=== PATIENT | female | born 1950 | race Caucasian/White ===

== ENCOUNTER 2018-06-29 18:52 | Emergency (ER) | payer MEDICARE, OTHER ==
[~2018-06-29] VITALS: Ht 162.6 cm; Wt 68.9 kg
[2018-06-29 20:16] VITALS: BP 140/91
[2018-06-29] MEDS ORDERED: THROMBIN 5,000 UNIT NASAL SPRAY BOTTLE. TP ONE (20:30)
[2018-06-29] MEDS ORDERED: DIPHTH,PERTUSS(ACELL),TET TOX 0.5 ML DISP.SYRIN. VAX IM ONE (20:45)
--- NOTE | 2018-06-29 21:32 | ED.ADGEN ---
Past History Past Medical History: High Cholesterol, Hypothyroid Past Surgical History: Hysterectomy Alcohol Use: None Drug Use: None Adult General Chief Complaint Chief Complaint Left index finger skin avulsion HPI HPI Patient is a 67-year-old female presents with left index skin avulsion from kitchen knife. Patient was cutting bread when she skinned the tip of her left index finger. Patient with gentle oozing with approximately 0.5 cm diameter full -thickness soft tissue defect. No exposed bone or nailbed involvement. Injury occurred just prior to ED arrival. Tetanus is out of date.[] Review of Systems Review of Systems Review symptoms as per history of present illness. All other review symptoms are negative. All other systems were reviewed and found to be within normal limits, except as documented in this note. Current Medications Current Medications Current Medications Medications (Trade) Dose Ordered Sig/Mitchel Start Time Stop Time Status Last Admin Dose Admin Diphtheria/ Tetanus/Acell Pertussis (Boostrix) 0.5 ml ONCE ONCE 06/29/18 20:45 06/29/18 20:46 DC 06/29/18 20:51 0.5 ML Thrombin (Thrombin-Jmi) 1 spray 1X ONCE 06/29/18 20:30 06/29/18 20:31 DC 06/29/18 20:30 1 SPRAY Allergies Allergies Allergies Coded Allergies Type Severity Reaction Last Updated Verified Penicillins Allergy Intermediate 06/29/18 Yes codeine Allergy Unknown 06/29/18 Yes Physical Exam Physical Exam Constitutional: Well developed, well nourished, no acute distress, non-toxic appearance. [] HENT: Normocephalic, atraumatic, bilateral external ears normal, oropharynx moist, no oral exudates, nose normal. [] Extremities: Left index finger, 0.4 cm full thickness skin defect over radial aspect of finger lateral nail bed. Gentle oozing. No exposed bone or nail bed injury.[] Neurologic: Alert and oriented X 3, normal motor function, normal sensory function, no focal deficits noted. [] Psychologic: Affect normal, judgement normal, mood normal. [] Current Patient Data Vital Signs Vital Signs Date Time Temp Pulse Resp B/P (MAP) Pulse Ox O2 Delivery O2 Flow Rate FiO2 06/29/18 20:16 98.0 70 18 96 Room Air EKG EKG [] Radiology/Procedures Radiology/Procedures [] Course & Med Decision Making Course & Med Decision Making Pertinent Labs and Imaging studies reviewed. (See chart for details) [Wound irrigated, ROM and applied to slow bleeding, wound bandaged and tetanus updated. Typical care instructions provided. Return precautions reviewed.] Final Impression Final Impression [1. Left index finger skin avulsion] Jenny Disclaimer Jenny Disclaimer This electronic medical record was generated, in whole or in part, using a voice recognition dictation system. ULISSES MEEHAN DO Jun 29, 2018 21:32
== END 2018-06-29 20:54 | disposition home or self-care (01) ==
LOC: ER 18:52
DX: S61.301A Unspecified open wound of left index finger with damage to nail, initial encounter (principal); E78.00 Pure hypercholesterolemia, unspecified; E03.9 Hypothyroidism, unspecified; Z88.0 Allergy status to penicillin; Z88.5 Allergy status to narcotic agent; W26.0XXA Contact with knife, initial encounter; Y93.89 Activity, other specified; Y92.89 Other specified places as the place of occurrence of the external cause; Y99.8 Other external cause status
CPT/HCPCS: 90471; 90715; 99283-25

== ENCOUNTER → 2019-07-31 | Outpatient (CLI) | payer MEDICARE, OTHER ==
--- NOTE | 2019-07-31 10:28 | RAD ---
EXAM: Right lower extremity venous Doppler sonogram. HISTORY: Pain. TECHNIQUE: Muñoz scale and color Doppler sonographic evaluation of the right lower extremity veins with spectral waveform analysis was performed. FINDINGS: There is normal color flow, normal compressibility and there are normal spectral waveforms in the common femoral, superficial femoral, popliteal, posterior tibial and greater saphenous veins. IMPRESSION: No Doppler evidence of lower extremity deep venous thrombosis. Electronically signed by: Kerry Grullon MD (07/31/2019 10:26 AM) [place] [id number]
== END | disposition home or self-care (01) ==
LOC: US 09:20
PROVIDERS: ATTEND Nurse Practitioner Adult Health
DX: M79.651 Pain in right thigh (principal)
CPT/HCPCS: 93971